=== PATIENT | male | born 1955 | race Caucasian/White ===

== ENCOUNTER 2021-06-28 17:23 | Emergency (ER) | payer MEDICARE ==
[~2021-06-28] VITALS: Ht 182.9 cm; Wt 86.8 kg
[2021-06-28 18:19] VITALS: TEMP 98.9
[2021-06-28 19:19] LABS: BASO % 0.3 % (0.0-2.0); EOS # 0.3 K/mm3 (0.0-0.7); EOS % 3.6 % (0.0-4.0); GRAN # 4.9 K/mm3 (1.4-6.5); HEMOGLOBIN 10.5 g/dl (13.5-18.0); LYMPH # 1.2 K/mm3 (1.2-3.4); LYMPH % 16.4 % (20.0-51.0); MEAN CELL VOLUME 86 fl (80.0-100.0); MEAN CORPUSCULAR HEMOGLOBIN 25 pg (27-31); MEAN CORPUSCULAR HGB CONC 29 g/dl (33.0-37.0); MEAN PLATELET VOLUME 10.6 fl (7.4-10.4); MONO # 0.7 K/mm3 (0.1-0.6); MONO % 9.3 % (1.7-9.3); PLATELET COUNT 227 K/mm3 (130-400); RED BLOOD COUNT 4.23 M/mm3 (4.20-5.60); REDCELL DISTRIBUTION WIDTH-CV 21.8 % (11.5-14.5)
[2021-06-28 19:22] LABS: HEMATOCRIT 36.4 % (42.0-52.0)
[2021-06-28 19:36] LABS: ALBUMIN 3.9 gm/dL (3.4-4.8); BILIRUBIN,TOTAL 0.5 mg/dL (0.2-1.2); CALCIUM 9.9 mg/dL (8.4-10.2); CREATININE, serum 0.72 mg/dL (0.72-1.25); POTASSIUM 4.1 mmol/L (3.5-4.5); TOTAL PROTEIN 8.4 gm/dL (6.2-8.1)
[2021-06-28 19:41] LABS: TROPONIN-I 0.032 ng/mL (0.00-0.033)
[2021-06-28 22:17] LABS: COLLECTION METHOD CLEAN CATCH
[2021-06-28 22:26] LABS: PH 6 (5-8); SQUAMOUS EPITHELIAL 0-2 /hpf (0-10); URINE APPEARANCE Clear (CLEAR/HAZY); URINE BACTERIA None Seen /hpf (NONE SEEN); URINE BILIRUBIN Negative (NEGATIVE); URINE BLOOD Negative (NEGATIVE); URINE COLOR Yellow (YELLOW); URINE GLUCOSE Negative (NEGATIVE); URINE KETONE Trace (NEGATIVE); URINE LEUKOCYTE ESTERASE 1+ (NEGATIVE); URINE NITRATE Negative (NEGATIVE); URINE PROTEIN(semi-quant) Negative (NEGATIVE); URINE UROBILINOGEN >=4.0 (NEGATIVE)
[2021-06-28 22:37] VITALS: BP 128/80; PULSE 84
== END 2021-06-28 22:43 | disposition home or self-care (01) ==
LOC: COL.ER 17:23
PROVIDERS: Nurse Practitioner; Nurse Practitioner Primary Care
DX: S09.90XA Unspecified injury of head, initial encounter (principal); I11.0 Hypertensive heart disease with heart failure; I50.9 Heart failure, unspecified; J45.909 Unspecified asthma, uncomplicated; Z86.16 Personal history of COVID-19; W01.198A Fall on same level from slipping, tripping and stumbling with subsequent striking against other object, initial encounter

== ENCOUNTER 2021-08-27 10:21 | Day surgery (SDC) | payer MEDICARE, BC ==
[~2021-08-27] VITALS: Ht 182.9 cm; Wt 88.1 kg
[2021-08-27] VITALS (7 sets, daily range): BP systolic 95–123; BP diastolic 58–74; PULSE 71–101; TEMP 97.1–98.7
[2021-08-27] MEDS ORDERED: TYLENOL 500MG500 MG PO (11:25)
[2021-08-27] MEDS ORDERED: ALDACTONE 100M100 MG PO (11:25)
[2021-08-27] MEDS ORDERED: CETAPHIL COMPO480 ML TOP (11:26)
[2021-08-27] MEDS ORDERED: FLONASEALLERGY NS (11:27)
[2021-08-27] MEDS ORDERED: FERROUS FUMARA324 MG PO (11:27)
[2021-08-27] MEDS ORDERED: IPRATROPIUM BROM3 M1 IH (11:28)
[2021-08-27] MEDS ORDERED: LYRICA 50MG CAP50 MG PO (11:29)
[2021-08-27] MEDS ORDERED: MIRALAX PA17 GM/Dose PO (11:29)
[2021-08-27] MEDS ORDERED: LASIX 40MG TABL40 MG PO (11:29)
[2021-08-27] MEDS ORDERED: OMEGA-3 1000 MG1 CAP PO (11:30)
[2021-08-27] MEDS ORDERED: PRIL40 PO (11:30)
[2021-08-27] MEDS ORDERED: 00186-0370-20 IH (11:31)
[2021-08-27] MEDS ORDERED: [UNRECOGNIZED DRUG - OTHER] PO (11:31)
[2021-08-27] MEDS ORDERED: SYNTHROID 0.0.025 MG PO (11:32)
--- NOTE | 2021-08-27 12:37 | NUR ---
1237 Pt returns from endo procedure via cart and RN assist to [facility]. Pt ambulates from cart to recliner with RN assist. Monitors on and alarms set. Call light within reach. Report received from DAWNA Angelo. Pt alert and oriented. Pt requests food and drink. Pt denies any pain or nausea.
--- NOTE | 2021-08-27 13:57 | NUR ---
1325: Patient brought to restroom. Patient up with cane and stand by assistance. 1330: Patient out of bathroom, brought back into [facility] 8. IV removed and patient to get dressed with assistance of . 1340: Went through discharge instructions with patient and . Questions answered. Patient then escorted to patient enterence via wheelchair with along side. Patient left in the care of his , Myla.
== END 2021-08-27 13:45 | disposition home or self-care (01) ==
LOC: SDCO 10:21
DX: K22.70 Barrett's esophagus without dysplasia (principal); K20.90 Esophagitis, unspecified without bleeding; D12.5 Benign neoplasm of sigmoid colon; K57.30 Diverticulosis of large intestine without perforation or abscess without bleeding; F10.11 Alcohol abuse, in remission; F17.210 Nicotine dependence, cigarettes, uncomplicated; Z86.19 Personal history of other infectious and parasitic diseases; Z86.16 Personal history of COVID-19; Z99.81 Dependence on supplemental oxygen
CPT/HCPCS: J2704; J3010; J7030

== ENCOUNTER → 2022-09-09 | Day surgery (SDC) | payer MEDICARE, BC ==
[~2022-09-09] VITALS: Ht 180.3 cm; Wt 91.4 kg
[~2022-09-09] MED LIST: 00186-0370-20 IH; ALDACTONE 100M100 MG PO; CETAPHIL COMPO480 ML TOP; FERROUS FUMARA324 MG PO; FLONASEALLERGY NS; IPRATROPIUM BROM3 M1 IH; LASIX 40MG TABL40 MG PO; LYRICA 50MG CAP50 MG PO; MIRALAX PA17 GM/Dose PO; OMEGA-3 1000 MG1 CAP PO; PRIL40 PO; SYNTHROID 0.0.025 MG PO; TYLENOL 500MG500 MG PO; [UNRECOGNIZED DRUG - OTHER] PO
[2022-09-09 09:48] VITALS: BP 128/75; PULSE 71; TEMP 96.6
[2022-09-09 10:40] VITALS: BP 112/58; PULSE 86; TEMP 97.1
[2022-09-09 10:55] VITALS: BP 123/83; PULSE 84
--- NOTE | 2022-09-09 11:05 | NUR ---
1040 RETURNS TO ROOM 4 PER CART AWAKE, ALERT. RESP UNLABORED, O2 PER N/C AMBULATES TO RECLINER WITH STANDBY ASSIST. DENIES NAUSEA, ABD PAIN OR DYSPHAGIA. CALL LIGHT AT SIDE. FRIEND IN ROOM 1050 TOLERATES JUICE WITHOUT NAUSEA. SWALLOWS WITHOUT DIFFICULTY 1051 DR POWELL HERE TO VISIT WITH PATIENT 1054 DISCHARGE INSTRUCTIONS REVIEWED. PATIENT VERBALIZES UNDERSTANDING. COPY PROVIDED IN DISCHARGE FOLDER. 1107 PATIENT DRESSES WITH MINIMAL ASSIST. PATIENT'S OWN O2 APPLIED PER N/C PRIOR TO DISCHARGE
== END ==
LOC: SDCO 08:09
DX: K22.70 Barrett's esophagus without dysplasia (principal); K70.31 Alcoholic cirrhosis of liver with ascites; Z87.891 Personal history of nicotine dependence; Z86.19 Personal history of other infectious and parasitic diseases; Z87.898 Personal history of other specified conditions
CPT/HCPCS: J2704; J7120